=== PATIENT | female | born 1985 | race African-American/Black ===

== ENCOUNTER 2020-04-02 18:06 | Emergency (ER) | payer OTHER ==
[~2020-04-02] VITALS: Ht 154.9 cm; Wt 54.4 kg
--- NOTE | 2020-04-02 18:48 | NUR ---
URINE SAMPLE OBTAINED.
[2020-04-02] MEDS ORDERED: AZITHROMYCIN 250 MG TABLET PO ONE (19:00)
[2020-04-02] MEDS ORDERED: CEFTRIAXONE 500 MG VIAL IM ONE (19:00)
--- NOTE | 2020-04-02 19:02 | NUR ---
COVID SWAB SENT TO LAB.
[2020-04-02 19:06] LABS: BASOPHILS % (AUTO) 0.8 % (0.0-2.0); EOSINOPHILS % (AUTO) 0.8 % (0.0-6.0); HEMATOCRIT 29 % (33-45); HEMOGLOBIN 9.1 g/dL (11.5-14.8); LYMPHOCYTES # (AUTO) 1.6 /CMM (0.8-4.8); LYMPHOCYTES % (AUTO) 28.9 % (20.0-44.0); MEAN CORPUSCULAR HGB CONC 32 g/dl (31.0-36.0); MEAN CORPUSCULAR VOLUME 71 fL (82-100); MONOCYTES # (AUTO) 0.5 /CMM (0.1-1.30); MONOCYTES % (AUTO) 8.4 % (2.0-12.0); NEUTROPHILS # (AUTO) 3.4 /CMM (1.8-8.9); NEUTROPHILS % (AUTO) 61.1 % (43.0-81.0); PLATELET COUNT (AUTO) 244 /CMM (150-450); RED BLOOD CELL COUNT(AUTO) 4.05 MIL/uL (4.0-5.2); WHITE BLOOD COUNT (AUTO) 5.5 K/uL (4.3-11.0)
[2020-04-02 19:21] LABS: BILIRUBIN,URINE Negative (NEGATIVE); COLOR,URINE YELLOW (YELLOW); LEUKOCYTE ESTERASE ,URINE Negative (NEGATIVE); NITRITE, URINE Negative (NEGATIVE); PROTEIN,URINE Negative (NEGATIVE); UGLUCOSE Negative (NEGATIVE)
[2020-04-02 19:33] LABS: ALANINE AMINOTRANSFERASE 23 U/L (12-78); ALBUMIN 3.8 g/dL (3.4-5.0); ALCOHOL, BLOOD 4 mg/dL (0-0); ALKALINE PHOSPHATASE 54 U/L (46-116); ASPARTATE AMINOTRANSFERASE 26 U/L (15-37); BILIRUBIN,DIRECT 0.1 mg/dL (0.0-0.2); BILIRUBIN,TOTAL 0.4 mg/dL (0.2-1.0); CALCIUM, SERUM 8.8 mg/dL (8.5-10.1); CARBON DIOXIDE 27 mmol/L (21-32); CHLORIDE 106 mmol/L (98-107); CREATININE 0.8 mg/dL (0.6-1.3); POTASSIUM 3.5 mmol/L (3.5-5.1); SODIUM SERUM 142 mmol/L (136-145); TOTAL PROTEIN, SERUM 7.3 g/dL (6.4-8.2); UREA NITROGEN, BLOOD 9 mg/dL (7-18)
[2020-04-02 19:34] LABS: GLUCOSE 109 mg/dL (74-106)
[2020-04-02 19:35] LABS: ACETAMINOPHEN < 10 ug/ml (10-30)
[2020-04-02 20:00] VITALS: BP 128/82
--- NOTE | 2020-04-02 20:00 | NUR ---
ASSUMED CARE FOR PATIENT AT THIS TIME. PT BIBUNCLE C/O DEPRESSION AND REQUESTING VOLUNTARY ADMISSION TO PSYCH FACILITY. UPON ASSESSMENT, PT'S UNCLE VERY FRUSTRATED STATING "I WORK FOR [employer] AND THIS IS TAKING TOO LONG, THEY ALREADY HAVE A BED WAITING FOR HER AT [facility]". EXPLAINED THE PROCESS THAT WE ARE WAITING FOR THE PATIENT TO BE MEDICALLY CLEARED TO WORK ON THE TRANSFER, PATIENT VERBALIZED UNDERSTANDING. PT AAOX4. CALM AND COOPERATIVE. NO ACUTE DISTRESS NOTED AT THIS TIME.
--- NOTE | 2020-04-02 20:23 | NUR ---
CLINICAL INFORMATION FAXED TO [facility]
--- NOTE | 2020-04-02 21:05 | NUR ---
REC'D CALL BY MIRTHA FROM [facility], PATIENT SHOWED UP BY AMBULANCE TO [facility] WITH FAMILY. INFORMED MIRTHA THAT I SPOKE WITH THE FAMILY 15 MINUTES PRIOR TO GIVE UPDATE THAT WE ARE WAITING FOR ACCEPTANCE INFORMATION FROM [facility]. PER RECRUITMENT OFFICER SERGIO FROM [facility], PT ACCEPTED AND OKAY TO STAY AT [facility]. WILL CALL FOR REPORT AT THIS TIME
--- NOTE | 2020-04-02 21:05 | NUR ---
Jorge albrightthai in ED - 04/02/20 at 2310 by CESAR REC'D CALL BY MIRTHA FROM [facility], PATIENT SHOWED UP TO [facility] WITH FAMILY. PER ACCOUNTING OFFICER SERGIO FROM [facility], PT ACCEPTED TO [facility]. WILL CALL FOR REPORT
--- NOTE | 2020-04-02 21:14 | NUR ---
REPORT GIVEN TO NIKA HERNÁNDEZ FOR [facility] FERNANDO
== END 2020-04-02 23:12 ==
LOC: ER 18:17
DX: Z02.2 Encounter for examination for admission to residential institution (principal); D50.9 Iron deficiency anemia, unspecified; Z20.822 Contact with and (suspected) exposure to COVID-19; F19.10 Other psychoactive substance abuse, uncomplicated; Z20.2 Contact with and (suspected) exposure to infections with a predominantly sexual mode of transmission; R01.1 Cardiac murmur, unspecified; F32.9 Major depressive disorder, single episode, unspecified; F17.200 Nicotine dependence, unspecified, uncomplicated
CPT/HCPCS: 36415; 80048; 80076; 80299; 80307; 80320; 81003; 84703; 85025; 87426; 87491; 87591; 99285; C9803; G0480